=== PATIENT | male | born 1950 | race Hispanic/Latino ===

== ENCOUNTER → 2023-07-18 10:33 | Outpatient (REF) | payer OTHER, SELFPAY ==
[2023-07-18 12:46] LABS: Urine Albumin Trace (Neg - Trace); Urine Bilirubin Negative (Negative); Urine Character Clear (Clear); Urine Color Yellow; Urine Glucose Negative (Negative); Urine Ketone Negative (Negative); Urine Leukocyte Negative (Negative); Urine Nitrite Negative (Negative); Urine Occult Blood Negative (Negative); Urine Urobilinogen Negative (Neg - 1+)
[2023-07-18 12:55] LABS: Alkaline Phosphatase, Total 134 U/L (38-126); Blood Urea Nitrogen 26 mg/dl (9-20); Calcium 9.7 mg/dl (8.4-10.2); Carbon Dioxide 30 mmol/L (22-30); Chloride 104 mmol/L (98-107); Glucose 87 mg/dl (70-99); Iron 93 ug/dl (49-181); Phosphorus 3.8 mg/dl (2.5-4.5); Potassium 3.7 mmol/L (3.5-5.1); Sodium 143 mmol/L (135-145); eGFR 38.77
[2023-07-18 12:59] LABS: Protein/creatinine Ratio 0.2; Urine Protein 19 mg/dl
[2023-07-18 13:05] LABS: Percent Saturation 35 % (20-50); Total Iron Binding Capacity 259 ug/dl (261-462)
[2023-07-18 13:29] LABS: Ferritin 53.1 ng/ml (17.9-464.0)
[2023-07-18 14:00] LABS: Folate 12.1 ng/ml (2.76-20); Vitamin B12 331 pg/ml (239-931)
[2023-07-18 15:10] LABS: Alk Phos After Heat 78; Alkaline Phosphatase Percent 58.21
[2023-07-20 09:52] LABS: Intact PTH 119.9 pg/ml (13.6-85.8)
[2023-07-20 13:38] LABS: 24 Hour Urine Total Volume Random mL; Urine Collection Length Random hr; Urine Free Kappa Light Chains 94.03 mg/L (0.00-32.90)
[2023-07-22 04:00] LABS: Albumin 4.03 g/dL (3.75-5.01); Alpha 1 Globulin 0.27 g/dL (0.19-0.46); Alpha 2 Globulin 0.51 g/dL (0.48-1.05); SPEP IFE Reflex Not Done; Total Protein-Electrophoresis 7.4 g/dL (6.3-8.2)
== END ==
LOC: HWRAD 10:33
PROVIDERS: ATTENDING PHYSICIAN Specialist; FAMILY PHYSICIAN Nurse Practitioner Adult Health
DX: R74.8 Abnormal levels of other serum enzymes (principal); N18.32 Chronic kidney disease, stage 3b; Q61.3 Polycystic kidney, unspecified; E61.1 Iron deficiency; E53.8 Deficiency of other specified B group vitamins
CPT/HCPCS: 36415; 76700; 80048; 81003; 82570; 82607; 82728; 82746; 83521; 83540; 83550; 83970; 84078; 84100; 84155; 84156; 84165; 86335; G0103

== ENCOUNTER → 2023-12-24 09:14 | Outpatient (REF) | payer OTHER, SELFPAY | LOC: HWRCS 09:14 | PROVIDERS: ATTENDING PHYSICIAN Internal Medicine; FAMILY PHYSICIAN Nurse Practitioner Adult Health | DX: I34.0 Nonrheumatic mitral (valve) insufficiency (principal) | CPT/HCPCS: 93306 ==

== ENCOUNTER → 2023-12-27 08:07 | Outpatient (REF) | payer OTHER, SELFPAY | LOC: DHCBC/DCA 08:07 | PROVIDERS: ATTENDING PHYSICIAN Internal Medicine; FAMILY PHYSICIAN Nurse Practitioner Adult Health | DX: I25.10 Atherosclerotic heart disease of native coronary artery without angina pectoris (principal) | CPT/HCPCS: 78452; 93017; A9500; J2785 ==

== ENCOUNTER → 2024-01-14 09:00 | Outpatient (REF) | payer OTHER, SELFPAY | LOC: HWRAD 09:00 | PROVIDERS: ATTENDING PHYSICIAN Nurse Practitioner Adult Health | DX: R10.10 Upper abdominal pain, unspecified (principal); K83.8 Other specified diseases of biliary tract; D64.9 Anemia, unspecified | CPT/HCPCS: 74176 ==

== ENCOUNTER → 2024-05-21 09:39 | Outpatient (REF) | payer OTHER, SELFPAY | LOC: HWRAD 09:39 | PROVIDERS: ATTENDING PHYSICIAN Internal Medicine; FAMILY PHYSICIAN Nurse Practitioner Adult Health | DX: N25.81 Secondary hyperparathyroidism of renal origin (principal); I13.0 Hypertensive heart and chronic kidney disease with heart failure and stage 1 through stage 4 chronic kidney disease, or unspecified chronic kidney disease; N20.0 Calculus of kidney; N18.32 Chronic kidney disease, stage 3b; R80.8 Other proteinuria | CPT/HCPCS: 76775 ==

== ENCOUNTER → 2025-01-21 10:45 | Outpatient (REF) | payer OTHER, SELFPAY | LOC: HWRAD 10:45 | PROVIDERS: ATTENDING PHYSICIAN Nurse Practitioner Adult Health | DX: M25.571 Pain in right ankle and joints of right foot (principal) | CPT/HCPCS: 73610 ==